=== PATIENT | female | born 1990 | race Caucasian/White ===

== ENCOUNTER 2016-10-05 17:49 | Emergency (ER) | payer MEDICAID ==
[~2016-10-05] VITALS: Ht 167.6 cm; Wt 66.0 kg
[~2016-10-05 17:49] MED LIST: NO MEDS
[2016-10-05 19:50] VITALS: BP 116/75
== END 2016-10-05 21:41 | disposition home or self-care (01) ==
LOC: ER 19:13
DX: B86 Scabies (principal)
CPT/HCPCS: 99282

== ENCOUNTER 2016-12-09 19:55 | Emergency (ER) | payer MEDICAID ==
[~2016-12-09] VITALS: Ht 167.6 cm; Wt 67.0 kg
[2016-12-10] MEDS ORDERED: IBUPROFEN 600MG TABLET PO STA (00:03)
[2016-12-10 00:21] LABS: BASOPHILS % 0.4 % (0.0-2.0); EOSINOPHILS % 1.3 % (0.0-5.0); HEMATOCRIT. 40.1 % (36.0-48.0); LYMPHOCYTES % 22.8 % (20.0-50.0); MEAN CORPUSCULAR HEMOGLOBIN 29.9 pg (28.0-32.0); MEAN CORPUSCULAR VOLUME 85.9 fL (81.0-99.0); MEAN PLATELET VOLUME 6.5 fl (7.4-10.4); MONOCYTES % 8.6 % (2.0-8.0); NEUTROPHILS % 66.9 % (40.0-76.0); PLATELET 197 x1000/uL (130-400); RED BLOOD CELL COUNT 4.67 mill/uL (4.2-5.4); RED CELL DISTRIBUTION WIDTH 13.2 % (11.6-14.6)
[2016-12-10 00:26] LABS: CHLORIDE 109 mEq/L (98-107)
[2016-12-10 00:29] LABS: PROTHROMBIN TIME 10.8 sec
[2016-12-10 00:35] LABS: CARBON DIOXIDE 25 mEq/L (21-32)
[2016-12-10 00:57] VITALS: BP 108/59
[2016-12-10 01:12] LABS: CLARITY URINE CLOUDY (CLEAR); COLOR URINE YELLOW (YELLOW); KETONES URINE NEGATIVE (NEGATIVE); LEUKOCYTE ESTERASE URINE 2+ (NEGATIVE); NITRITE URINE NEGATIVE (NEGATIVE); OCCULT BLOOD URINE 3+ (NEGATIVE); PH URINE 7.5 (4.5-8.0); PROTEIN URINE 1+ (NEGATIVE); SPECIFIC GRAVITY URINE 1.024 (1.005-1.030)
[2016-12-10] MEDS ORDERED: CEFTRIAXONE SODIUM 1 G/VIAL IM ONE (01:30)
[2016-12-10] MEDS ORDERED: LIDOCAINE HCL 1% 20ML VIAL (Pyxis) INJ MC ONE (01:30)
== END 2016-12-10 02:09 | disposition home or self-care (01) ==
LOC: ER 19:56
DX: N39.0 Urinary tract infection, site not specified (principal)
CPT/HCPCS: 36415; 80053; 81001; 81025; 83690; 85025; 85610; 96372; 99284; J0696; J3490; Z7610